=== PATIENT | female | born 2005 | race Caucasian/White ===

== ENCOUNTER 2024-09-25 06:50 | Emergency (ER) | payer OTHER ==
[~2024-09-25] VITALS: Ht 154.9 cm; Wt 113.4 kg
[2024-09-25 07:35] LABS: BASOPHILS % (AUTO) 0.5 % (0.0-2.0); EOSINOPHILS % (AUTO) 0.1 % (0.0-6.0); HEMATOCRIT 41 % (33-45); HEMOGLOBIN 14.5 g/dL (11.5-14.8); LYMPHOCYTES # (AUTO) 0.4 K/uL (0.8-4.8); LYMPHOCYTES % (AUTO) 9.7 % (20.0-44.0); MEAN CORPUSCULAR HEMOGLOBIN 32 PG (26.0-33.0); MEAN CORPUSCULAR HGB CONC 35 g/dl (31.0-36.0); MEAN CORPUSCULAR VOLUME 89 fL (82-100); MONOCYTES # (AUTO) 0.7 K/uL (0.1-1.30); MONOCYTES % (AUTO) 14.8 % (2.0-12.0); NEUTROPHILS # (AUTO) 3.4 K/uL (1.8-8.9); NEUTROPHILS % (AUTO) 74.9 % (43.0-81.0); PLATELET COUNT (AUTO) 179 K/uL (150-450); RED CELL DISTRIBUTION WIDTH 12.7 % (11.5-15.0); WHITE BLOOD COUNT (AUTO) 4.6 K/uL (4.3-11.0)
[2024-09-25] MEDS: IV NS 0.9% 1,000 ML BAG IV ONE (07:45)
[2024-09-25] MEDS ORDERED: KETOROLAC TROMETHAMINE 15 MG/ML VIAL ONE (07:47)
[2024-09-25] MEDS ORDERED: ONDANSETRON HCL/PF 4 MG/2 ML VIAL ONE (07:47)
[2024-09-25] MEDS: KETOROLAC TROMETHAMINE 15 MG/ML VIAL IV ONE (07:55)
[2024-09-25] MEDS: ONDANSETRON HCL/PF 4 MG/2 ML VIAL IVP ONE (07:55)
[2024-09-25 07:58] LABS: CALCIUM, SERUM 8.9 mg/dL (8.5-10.1); CREATININE 0.7 mg/dL (0.6-1.3); POTASSIUM 3.2 mmol/L (3.5-5.1)
[2024-09-25] MEDS ORDERED: DICY10CA37 PO (08:18)
[2024-09-25] MEDS ORDERED: ONDA4TAB11 PO (08:18)
[2024-09-25] MEDS ORDERED: POTASSIUM CHLORIDE 20 MEQ TAB.PRT.SR PO ONE (08:35)
[2024-09-25] MEDS: POTASSIUM CHLORIDE 20 MEQ TAB.PRT.SR PO ONE (08:37)
[2024-09-25 08:44] VITALS: BP 134/90; TEMP 98.8; O2SAT 99
== END 2024-09-25 08:45 | disposition home or self-care (01) ==
LOC: ER 06:50
DX: K22.6 Gastro-esophageal laceration-hemorrhage syndrome (principal); A08.4 Viral intestinal infection, unspecified; F17.200 Nicotine dependence, unspecified, uncomplicated; J45.909 Unspecified asthma, uncomplicated
CPT/HCPCS: 99284; 96374; 96361; 96375; 85025; 80048; 36415; 84702; J2405; J7030; J1885